=== PATIENT | female | born 1970 | race Caucasian/White ===

== ENCOUNTER 2017-11-29 14:38 | Emergency (ER) | payer BC ==
[2017-11-29 15:17] LABS: AMYLASE 45 IU/L (1-118); CHLORIDE 104 mEq/L (99-109); SODIUM 138 mEq/L (136-147)
[2017-11-29 15:19] LABS: GLUCOSE 93 mg/dL (70-99)
[2017-11-29 15:22] LABS: SERUM ETHYL ALCOHOL < 10 mg/dL
[2017-11-29 15:23] LABS: UREA NITROGEN (BUN) 24 mg/dL (9-23)
[2017-11-29 15:25] LABS: LIPASE 17 U/L (1.0-51.0)
[2017-11-29 15:31] LABS: QUANTITATIVE HCG < 4.0 MIU/ML
[2017-11-29 15:40] LABS: GFR ESTIMATE (CALCULATED) > 59 mL/min/
[2017-11-29 16:17] LABS: BASOPHIL (%) 0.5 % (0-1); BASOPHIL COUNT 0.1 K/uL (0-0.1); EOSINOPHIL (%) 0.4 % (0-5); EOSINOPHIL COUNT 0.1 K/uL (0-0.3); HEMATOCRIT 46.9 % (36.0-46.0); HEMOGLOBIN 15.9 G/DL (11.9-15.5); IMMATURE GRANULOCYTE (%) 0.4 % (0.0-0.7); LYMPHOCYTE (%) 13.2 % (15-42); LYMPHOCYTE COUNT 1.7 K/uL (1.0-2.8); MCH 31.1 PG (29.0-34.0); MCHC 33.9 G/DL (30.0-36.0); MCV 91.6 FL (83-99); MONOCYTE (%) 7.2 % (3-12); MONOCYTE COUNT 0.9 K/uL (0-0.8); NEUTROPHIL (%) 78.3 % (45-76); NEUTROPHIL COUNT 10.1 K/uL (1.8-6.4); PLATELET COUNT 210 K/uL (156-360); RBC DIS.WIDTH-CV 12.3 % (11.8-14.6); RBC DIS.WIDTH-SD 41.5 % (39-53); RED BLOOD COUNT 5.12 M/uL (3.80-5.20); WHITE BLOOD COUNT 12.8 K/uL (4.1-10.2)
== END 2017-11-29 17:23 | disposition home or self-care (01) ==
LOC: TRA
PROVIDERS: Emergency Medicine
PROC: 3E0234Z Introduction of Serum, Toxoid and Vaccine into Muscle, Percutaneous Approach (ICD-10-PCS; principal; 2017-11-29)
DX: S09.8XXA Other specified injuries of head, initial encounter (principal); S53.401A Unspecified sprain of right elbow, initial encounter; S50.811A Abrasion of right forearm, initial encounter; S50.311A Abrasion of right elbow, initial encounter; S00.03XA Contusion of scalp, initial encounter; V17.4XXA Pedal cycle driver injured in collision with fixed or stationary object in traffic accident, initial encounter; Y93.55 Activity, bike riding; Z23 Encounter for immunization
CPT/HCPCS: 70450; 71045; 72125; 73070; 73090; 80048; 81003; 82150; 83690; 84702; 85025; 86850; 86900; 86901; 99281; 99285; G0480; J3010